=== PATIENT | female | born 1970 | race Asian ===

== ENCOUNTER 2020-04-27 07:00 | Emergency (ER) | payer OTHER ==
[~2020-04-27] VITALS: Ht 154.9 cm; Wt 49.9 kg
--- NOTE | 2020-04-27 07:10 | NUR ---
REBECA 878 FROM HOME OFR C/O ABD PAIN. +N/V/D. PTR ADMITTED ON DRINKING ALCOHOL W. LAST DRINK YESTERDAY AFTERNOON,. PT WAS PLACED IN BED 6, ON MONITOR, VSS. WILL CONT TO MONITOR
--- NOTE | 2020-04-27 07:17 | NUR ---
[facility] NAUSEA AND VOMITING SINCE 0300 IN THE MORNING. PATIENT HAS DIFFICULTY ANSWERING QUESTIONS DUE TO CONSTANT VOMITING. PT ADMITS TO DRINKING ALCOHOL. PATIENT IS BREATHING EVENLY AND UNLABORED ON ROOM AIR AT 100% 02 SATURATION. CONNECTED TO THE MONITOR. PLACED INTO A CLEAN GOWN.
[2020-04-27] MEDS ORDERED: ONDANSETRON HCL/PF 4 MG/2 ML VIAL ONE (07:28)
[2020-04-27] MEDS ORDERED: FAMOTIDINE/PF INJ 20 MG/2 ML VIAL IV ONE ×2 (07:29→07:30)
[2020-04-27] MEDS ORDERED: MORPHINE SULFATE INJ 4 MG/ML DISP.SYRIN ONE (07:29)
[2020-04-27] MEDS ORDERED: MORPHINE SULFATE INJ 2 MG/ML DISP.SYRIN IV ONE (07:30)
[2020-04-27] MEDS ORDERED: IV NS 0.9% 1,000 ML BAG IV ONE (07:30)
[2020-04-27] MEDS ORDERED: ONDANSETRON HCL/PF 4 MG/2 ML VIAL IVP ONE (07:30)
[2020-04-27 07:39] LABS: BASOPHILS % (AUTO) 0.3 % (0.0-2.0); EOSINOPHILS % (AUTO) 0.4 % (0.0-6.0); HEMATOCRIT 42 % (33-45); HEMOGLOBIN 14.5 g/dL (11.5-14.8); LYMPHOCYTES # (AUTO) 1.6 /CMM (0.8-4.8); LYMPHOCYTES % (AUTO) 17.1 % (20.0-44.0); MEAN CORPUSCULAR HGB CONC 34 g/dl (31.0-36.0); MEAN CORPUSCULAR VOLUME 107 fL (82-100); MONOCYTES # (AUTO) 0.4 /CMM (0.1-1.30); MONOCYTES % (AUTO) 4.5 % (2.0-12.0); NEUTROPHILS # (AUTO) 7.5 /CMM (1.8-8.9); NEUTROPHILS % (AUTO) 77.7 % (43.0-81.0); PLATELET COUNT (AUTO) 325 /CMM (150-450); RED BLOOD CELL COUNT(AUTO) 3.97 MIL/uL (4.0-5.2); WHITE BLOOD COUNT (AUTO) 9.6 K/uL (4.3-11.0)
[2020-04-27 07:48] LABS: CALCIUM, SERUM 11.4 mg/dL (8.5-10.1); CREATININE 0.8 mg/dL (0.6-1.3)
[2020-04-27 07:54] LABS: ALBUMIN 4.6 g/dL (3.4-5.0); BILIRUBIN,DIRECT 0.2 mg/dL (0.0-0.2); BILIRUBIN,TOTAL 0.6 mg/dL (0.2-1.0); TOTAL PROTEIN, SERUM 7.9 g/dL (6.4-8.2)
--- NOTE | 2020-04-27 08:26 | NUR ---
EMERGENCY CONTACT- TAMMY [phone], WANTS TO BE CALLED WHEN PT IS READY TO GET PICKED UP/DISCHARGED.
[2020-04-27] MEDS ORDERED: HYDROMORPHONE 1 MG/1 ML DISP.SYRIN ONE (08:27)
[2020-04-27] MEDS ORDERED: HYDROMORPHONE INJ 2 MG/ML DISP.SYRIN IV ONE (08:30)
--- NOTE | 2020-04-27 09:55 | NUR ---
PT SAID SHE WILL CALL HER FRIEND TO PICK HER UP
[2020-04-27 09:58] VITALS: BP 110/71
--- NOTE | 2020-04-27 10:09 | NUR ---
Patient discharged to home in stable condition. Written and verbal after care instructions given. Patient verbalizes understanding of instruction. IV removed. Catheter intact and site benign. Pressure and 4x4 applied to site. No bleeding noted.
== END 2020-04-27 10:10 | disposition home or self-care (01) ==
LOC: ER 07:02
DX: R10.13 Epigastric pain (principal); R11.2 Nausea with vomiting, unspecified; R19.7 Diarrhea, unspecified; Z90.710 Acquired absence of both cervix and uterus
CPT/HCPCS: 36415; 80048; 80076; 83690; 85025; 96361; 96374; 96375; 99285; J1170; J2270; J2405; J3490; J7030

== ENCOUNTER 2020-10-08 10:28 | Emergency (ER) | payer OTHER ==
[~2020-10-08] VITALS: Ht 157.5 cm; Wt 45.4 kg
[2020-10-08] MEDS ORDERED: ONDANSETRON HCL/PF 4 MG/2 ML VIAL ONE ×2 (10:43→12:16)
--- NOTE | 2020-10-08 10:49 | NUR ---
[id number], C/O MID EIGASTRIC PAIN +N/V SINCE 6AM. 100MCG FENTANYL GIVEN ENROUTE. ON ROOM AIR, BREATHING EVENLY AND UNLABORED. CONNECTED TO THE MONITOR AND PULSE OX. KEPT COMFORTABLE, WILL CONTINUE TO MONITOR ACCORDINGLY,.
[2020-10-08 10:57] LABS: BASOPHILS # (AUTO) 0.1 /CMM (0.0-0.2); BASOPHILS % (AUTO) 0.5 % (0.0-2.0); EOSINOPHILS % (AUTO) 0.2 % (0.0-6.0); HEMATOCRIT 45 % (33-45); HEMOGLOBIN 15.2 g/dL (11.5-14.8); LYMPHOCYTES # (AUTO) 0.9 /CMM (0.8-4.8); LYMPHOCYTES % (AUTO) 8.4 % (20.0-44.0); MEAN CORPUSCULAR HGB CONC 34 g/dl (31.0-36.0); MEAN CORPUSCULAR VOLUME 108 fL (82-100); MONOCYTES # (AUTO) 0.5 /CMM (0.1-1.30); MONOCYTES % (AUTO) 4.5 % (2.0-12.0); NEUTROPHILS # (AUTO) 9.5 /CMM (1.8-8.9); NEUTROPHILS % (AUTO) 86.4 % (43.0-81.0); PLATELET COUNT (AUTO) 328 /CMM (150-450); RED BLOOD CELL COUNT(AUTO) 4.18 MIL/uL (4.0-5.2); WHITE BLOOD COUNT (AUTO) 10.9 K/uL (4.3-11.0)
[2020-10-08] MEDS ORDERED: MAG HYDROX/AL HYDROX/SIMETH 30 ML UDC PO ONE (11:00)
[2020-10-08] MEDS ORDERED: FAMOTIDINE/PF INJ 20 MG/2 ML VIAL IV ONE ×2 (11:00→11:04)
[2020-10-08] MEDS ORDERED: IV NS 0.9% 1,000 ML BAG IV ONE ×2 (11:00)
[2020-10-08] MEDS ORDERED: LIDOCAINE VISCOUS 2% UD 15 ML UDC MM ONE (11:00)
[2020-10-08] MEDS ORDERED: ONDANSETRON HCL/PF 4 MG/2 ML VIAL IVP ONE ×2 (11:00)
[2020-10-08] MEDS ORDERED: MAG HYDROX/AL HYDROX/SIMETH 30 ML UDC ONE (11:04)
[2020-10-08] MEDS ORDERED: LIDOCAINE VISCOUS 2% UD 15 ML UDC ONE (11:04)
[2020-10-08 11:08] LABS: BILIRUBIN,URINE Negative (NEGATIVE); COLOR,URINE YELLOW (YELLOW); LEUKOCYTE ESTERASE ,URINE Negative (NEGATIVE); NITRITE, URINE Negative (NEGATIVE); PH,URINE 8.5 (5.0-8.0); PROTEIN,URINE 30 mg/dl (NEGATIVE); UGLUCOSE Negative (NEGATIVE); UROBILINOGEN,URINE 0.2 EU/dL (0.2)
[2020-10-08 11:08] LABS: CREATININE 0.7 mg/dL (0.6-1.3); POTASSIUM 3.7 mmol/L (3.5-5.1)
[2020-10-08 11:13] LABS: ALBUMIN 4.6 g/dL (3.4-5.0); BILIRUBIN,DIRECT 0.2 mg/dL (0.0-0.2); BILIRUBIN,TOTAL 0.7 mg/dL (0.2-1.0)
[2020-10-08 11:17] LABS: CALCIUM, SERUM 9.7 mg/dL (8.5-10.1)
[2020-10-08 11:23] LABS: BACTERIA,URINE Moderate /HPF (None Seen); RBC,URINE 0-2 /HPF (0-2); SQUAMOUS EPITHELIAL CELL,UR Many /HPF (None Seen); WBC,URINE 0-3 /HPF (0-3)
[2020-10-08 11:25] LABS: URINE AMORPHOUS PHOSPHATES Many /HPF (None Seen)
[2020-10-08] MEDS ORDERED: FAMO-131 PO (11:40)
[2020-10-08] MEDS ORDERED: ONDA4TAB5 PO (11:40)
[2020-10-08] MEDS ORDERED: IOHEXOL-300 100 ML VIAL IV ONE (11:59)
[2020-10-08] MEDS ORDERED: IV NS 0.9% 250 ML IV ONE (11:59)
[2020-10-08] MEDS ORDERED: CT SWABBABLE VALVE TRANS SET 1 EA INFUS.SET MC ONE (11:59)
[2020-10-08] MEDS ORDERED: MORPHINE SULFATE INJ 4 MG/ML DISP.SYRIN ONE (12:09)
[2020-10-08] MEDS ORDERED: ONDANSETRON HCL/PF 4 MG/2 ML VIAL IV ONE (12:30)
[2020-10-08] MEDS ORDERED: MORPHINE SULFATE INJ 2 MG/ML DISP.SYRIN IV ONE (12:30)
[2020-10-08] MEDS ORDERED: METOCLOPRAMIDE HCL 10 MG/2 ML VIAL ONE (12:51)
[2020-10-08] MEDS ORDERED: METOCLOPRAMIDE HCL 10 MG/2 ML VIAL IV ONE (13:00)
--- NOTE | 2020-10-08 13:12 | NUR ---
CALLED NAYAN TORO MD WILL CALL US BACK.
--- NOTE | 2020-10-08 13:24 | NUR ---
DR. BARNES FROM [facility] SPEAKING WITH DR. TONG.
--- NOTE | 2020-10-08 13:25 | NUR ---
LAB CALLED PT COVID RESULT NEGATIVE (-)
[2020-10-08] MEDS ORDERED: CEFTRIAXONE 1 G in IV D5W 50 ML IV ONE (13:30)
[2020-10-08] MEDS ORDERED: FLAGYL/NS RTU 500 MG/100 ML PIGGYBACK IV ONE (13:30)
[2020-10-08] MEDS ORDERED: CEFTRIAXONE 1GM BAG (ER ONLY) 50 ML IV ONE (13:36)
[2020-10-08] MEDS ORDERED: METRONIDAZOLE 500MG/ NS 100ML 100 ML IV ONE (13:36)
[2020-10-08 13:44] VITALS: BP 127/88
--- NOTE | 2020-10-08 14:12 | NUR ---
PT ACCPETED TO [facility] UNDER THE CARE OF DR. VELASQUEZ CALL [phone] FOR REPORT. AMBULANCE ETA [id number]
--- NOTE | 2020-10-08 14:20 | NUR ---
REPORT GIVE PHILLIP MARTINEZ/CHARGE NURSE FOR REPORT.
--- NOTE | 2020-10-08 14:30 | NUR ---
MD MADE AWARE THAT PT'S PAIN IS BACK. NNO RECEIVED.
--- NOTE | 2020-10-08 14:45 | NUR ---
[facility] AT BEDSIDE FOR PT TRANSPROT TO [facility]. PT IS IN STABLE CONDITION FOR TRANSPORT. REPORT GIVEN.
--- NOTE | 2020-10-08 14:55 | NUR ---
Derek flowers in [facility] - 10/08/20 at 1513 by JUAN MANUEL pt left on murphy with 3 ambulance staff at bedside.
--- NOTE | 2020-10-08 14:56 | NUR ---
Dr. Velez made aware that pt is having pain and nausea. NNO received and ok to go to [place]
--- NOTE | 2020-10-08 15:00 | NUR ---
pt left on gurney with 3 ambulance staff at bedside.
== END 2020-10-08 15:00 | disposition short-term general hospital (02) ==
LOC: ER 10:34
DX: R11.2 Nausea with vomiting, unspecified (principal); K52.9 Noninfective gastroenteritis and colitis, unspecified; F12.10 Cannabis abuse, uncomplicated; N83.202 Unspecified ovarian cyst, left side; R10.13 Epigastric pain; Z87.19 Personal history of other diseases of the digestive system; R82.4 Acetonuria; Z20.822 Contact with and (suspected) exposure to COVID-19; K76.0 Fatty (change of) liver, not elsewhere classified; Z90.710 Acquired absence of both cervix and uterus; F32.9 Major depressive disorder, single episode, unspecified
CPT/HCPCS: 36415; 71045; 74177; 76705; 76856; 80048; 80076; 80320; 81001; 83690; 84703; 85025; 87086; 87426; 96361; 96365; 96367; 96375; 96376; 99285; C9803; J0696; J2270; J2405 ×2; J2765; J3490; J7030; J7050; Q9967; G0480

== ENCOUNTER 2022-10-04 19:04 | Emergency (ER) | payer OTHER ==
[~2022-10-04] VITALS: Ht 154.9 cm; Wt 45.4 kg
[2022-10-04] MEDS ORDERED: ONDANSETRON HCL/PF 4 MG/2 ML VIAL ONE (19:36)
[2022-10-04 19:50] LABS: BASOPHILS % (AUTO) 0.3 % (0.0-2.0); HEMATOCRIT 47 % (33-45); HEMOGLOBIN 16.2 g/dL (11.5-14.8); LYMPHOCYTES # (AUTO) 0.4 K/uL (0.8-4.8); LYMPHOCYTES % (AUTO) 8.7 % (20.0-44.0); MEAN CORPUSCULAR HGB CONC 34 g/dl (31.0-36.0); MEAN CORPUSCULAR VOLUME 108 fL (82-100); MONOCYTES # (AUTO) 0.1 K/uL (0.1-1.30); NEUTROPHILS # (AUTO) 4.1 K/uL (1.8-8.9); PLATELET COUNT (AUTO) 341 K/uL (150-450); WHITE BLOOD COUNT (AUTO) 4.7 K/uL (4.3-11.0)
[2022-10-04] MEDS ORDERED: ONDANSETRON HCL/PF - ER 4 MG/2 ML VIAL IV ONE (20:00)
[2022-10-04] MEDS ORDERED: IV NS 0.9% 1,000 ML BAG IV ONE (20:00)
--- NOTE | 2022-10-04 20:28 | NUR ---
UNABLE TO PROVIDE URINE AT THIS TIME
[2022-10-04] MEDS ORDERED: METOCLOPRAMIDE HCL 10 MG/2 ML VIAL IV ONE (20:30)
[2022-10-04] MEDS ORDERED: METOCLOPRAMIDE HCL 10 MG/2 ML VIAL ONE (20:39)
[2022-10-04 21:29] LABS: ALANINE AMINOTRANSFERASE 40 U/L (12-78); ALBUMIN 5.3 g/dL (3.4-5.0); ALKALINE PHOSPHATASE 84 U/L (46-116); ASPARTATE AMINOTRANSFERASE 36 U/L (15-37); BILIRUBIN,DIRECT 0.4 mg/dL (0.0-0.2); BILIRUBIN,TOTAL 1.4 mg/dL (0.2-1.0); CARBON DIOXIDE 26 mmol/L (21-32); CHLORIDE 89 mmol/L (98-107); CREATININE 0.9 mg/dL (0.6-1.3); GLUCOSE 225 mg/dL (74-106); LIPASE 80 U/L (73-393); POTASSIUM 3.5 mmol/L (3.5-5.1); SODIUM SERUM 133 mmol/L (136-145); TOTAL PROTEIN, SERUM 8.7 g/dL (6.4-8.2); UREA NITROGEN, BLOOD 16 mg/dL (7-18)
[2022-10-04] MEDS ORDERED: MORPHINE SULFATE INJ 2 MG/ML DISP.SYRIN ONE (21:55)
[2022-10-04] MEDS ORDERED: MAG HYDROX/AL HYDROX/SIMETH 30 ML UDC PO ONE (22:00)
[2022-10-04] MEDS ORDERED: MORPHINE SULFATE INJ 2 MG/ML DISP.SYRIN IV ONE (22:00)
[2022-10-04] MEDS ORDERED: LIDOCAINE VISCOUS 2% UD 15 ML UDC MM ONE (22:00)
[2022-10-04] MEDS ORDERED: FAMOTIDINE/PF INJ 20 MG/2 ML VIAL IV ONE ×2 (22:00→22:21)
[2022-10-04 22:14] LABS: LYMPHOCYTES % (MANUAL) 10 % (16-48); MONOCYTES % (MANUAL) 2 % (0-11.0); NEUTROPHILS % (MANUAL) 88 (42-76)
[2022-10-04] MEDS ORDERED: MAG HYDROX/AL HYDROX/SIMETH 30 ML UDC ONE (22:20)
[2022-10-04] MEDS ORDERED: HALOPERIDOL LACTATE INJ 5 MG/ML VIAL ONE (22:20)
[2022-10-04] MEDS ORDERED: LIDOCAINE VISCOUS 2% UD 15 ML UDC ONE (22:20)
[2022-10-04] MEDS ORDERED: HALOPERIDOL LACTATE INJ 5 MG/ML VIAL IM ONE (22:30)
[2022-10-04] MEDS ORDERED: ONDA4TAB5 PO (22:47)
[2022-10-04 23:07] LABS: CALCIUM, SERUM 10.9 mg/dL (8.5-10.1)
[2022-10-04 23:09] VITALS: BP 129/82
--- NOTE | 2022-10-04 23:14 | NUR ---
IV removed. Catheter intact and site benign. Pressure and 4x4 applied to site. No bleeding noted.Patient discharged to home in stable condition. Written and verbal after care instructions given. Patient verbalizes understanding of instruction.
[2022-10-04 23:35] LABS: BILIRUBIN,URINE 1+ (NEGATIVE); COLOR,URINE YELLOW (YELLOW); LEUKOCYTE ESTERASE ,URINE NEGATIVE (NEGATIVE); NITRITE, URINE NEGATIVE (NEGATIVE); PROTEIN,URINE 1+ mg/dl (NEGATIVE); UGLUCOSE TRACE mg/dL (NEGATIVE); UROBILINOGEN,URINE 0.2 EU/dL (0.2)
[2022-10-05 00:51] LABS: BACTERIA,URINE Few /HPF (None Seen); RBC,URINE 0-2 /HPF (0-2); SQUAMOUS EPITHELIAL CELL,UR Few /HPF (None Seen); WBC,URINE 0-2 /HPF (0-3)
== END 2022-10-04 23:14 | disposition home or self-care (01) ==
LOC: ER 19:06
DX: F12.10 Cannabis abuse, uncomplicated (principal); R11.2 Nausea with vomiting, unspecified; R10.9 Unspecified abdominal pain; F32.A Depression, unspecified; F41.9 Anxiety disorder, unspecified; F17.200 Nicotine dependence, unspecified, uncomplicated; Z90.710 Acquired absence of both cervix and uterus
CPT/HCPCS: 99285; 74176; 96374; 96375; 71045; 96361; 93005; 85025; 80048; 83690; 80076; 81001; 36415; 84484; 85730; 85007; J1630; J3490; J2765; J2405; J7030 ×2; J2270